=== PATIENT | female | born 1970 | race Caucasian/White ===

== ENCOUNTER 2016-07-08 14:23 | Emergency (ER) | payer OTHER ==
[~2016-07-08] VITALS: Ht 167.6 cm; Wt 56.0 kg
[~2016-07-08 14:23] MED LIST: IBUP600T26 PO; LORTA5 PO; TOPR50TA PO
[2016-07-08 14:31] VITALS: BP 155/106; PULSE 112; RESP 17; TEMP 98.3; O2SAT 100
[2016-07-08] MEDS ORDERED: METO-338 PO (14:37)
[2016-07-08 14:42] LABS: AUTOMATED NEUTROPHIL # 8.5 TH/MM3 (1.8-7.7); BASOPHIL # 0.1 TH/MM3 (0-0.2); BASOPHIL % 0.6 % (0.0-2.0); EOSINOPHIL # 0.1 TH/MM3 (0-0.4); EOSINOPHIL % 0.5 % (0.0-4.0); HEMATOCRIT 44.5 % (35.0-46.0); LYMPH % 24.4 % (9.0-44.0); LYMPHOCYTE # 3.4 TH/MM3 (1.0-4.8); MEAN CELL VOLUME 94.3 FL (80.0-100.0); MEAN CORPUSCULAR HEMOGLOBIN 31.3 PG (27.0-34.0); MEAN CORPUSCULAR HGB CONC 33.2 % (32.0-36.0); MONO % 13.2 % (0.0-8.0); NEUT % 61.3 % (16.0-70.0); PLATELET COUNT 132 TH/MM3 (150-450); RED BLOOD COUNT 4.72 MIL/MM3 (4.00-5.30); RED CELL DISTRIBUTION WIDTH 12.5 % (11.6-17.2)
[2016-07-08 14:43] LABS: HEMO FLAGS DIFF FINAL
[2016-07-08 14:51] LABS: POTASSIUM 4.3 MEQ/L (3.5-5.1)
[2016-07-08 14:54] LABS: BICARBONATE 28.5 MEQ/L (21.0-32.0)
[2016-07-08 14:57] VITALS: BP 102/73; PULSE 73; RESP 17; O2SAT 98
--- NOTE | 2016-07-08 14:57 | PD ---
HPI Chief Complaint: Cardiac Complaint Time Seen by Provider: 14:27 Travel History International Travel<30 days: No Contact w/Intl Traveler<30days: No Traveled to known affect area: No History of Present Illness HPI The patient is a 45-year-old female who presents to the emergency department for palpitations. The patient has a long-standing history of supraventricular tachycardia and has been on metoprolol for approximately 20 years. The patient has had a previous workup including echocardiogram in the past. The patient states she tried several maneuvers at home including coughing , bearing down, and subsequently took extra metoprolol. The patient took a total of 250 mg of metoprolol today, states her symptoms resolved just that she arrived in the emergency department. The patient complained of palpitations with a racing heart, but denied any lightheadedness, dizziness, chest pain, shortness breath, nausea, vomiting, or syncopal episodes. The patient is followed by a primary physician in [place], [place]. PFSH Past Medical History Heart Rhythm Problems: Yes (SVT) Cardiovascular Problems: Yes (HEART MURMUR;MITRAL VALVE PROLAPSE;SVT) Diminished Hearing: No Musculoskeletal: Yes (CARPAL TUNNEL) Tetanus Vaccination: > 5 Years Influenza Vaccination: No ?: Not : 2 Para: 2 Past Surgical History Other Surgery: Yes (WISDOM TEETH REMOVED) Social History Alcohol Use: Yes (SOCIAL) Tobacco Use: Yes (1 PPD) Substance Use: No Allergies-Medications (Allergen,Severity, Reaction): Coded Allergies: No Known Allergies (Verified , 07/08/16) Reported Meds & Prescriptions Reported Meds & Active Scripts Active Reported Lopressor (Metoprolol Tartrate) 100 Mg Tab 100 Mg PO DAILY Review of Systems Except as stated in HPI: all other systems reviewed are Neg General / Constitutional: No: Fever Eyes: No: Blurred Vision HENT: No: Lightheadedness Cardiovascular: Positive: Palpitations, Tachycardia, No: Chest Pain or Discomfort, Irregular Rhythm, Diaphoresis, Dyspnea on exertion Respiratory: No: Shortness of Breath Gastrointestinal: No: Nausea, Vomiting, Abdominal Pain Neurologic: No: Dizziness Physical Exam Narrative GENERAL: Awake, alert, pleasant 45-year-old female who appears her stated age and is in no acute respiratory distress. SKIN: Warm and dry. HEAD: Atraumatic. Normocephalic. EYES: No injection or drainage. ENT: No nasal bleeding or discharge. Mucous membranes pink and moist. NECK: Trachea midline. No JVD. CARDIOVASCULAR: Regular rate and rhythm. No murmur appreciated. Heart rate in the 80s. RESPIRATORY: No accessory muscle use. Clear to auscultation. Breath sounds equal bilaterally. MUSCULOSKELETAL: No obvious deformities. No clubbing. No cyanosis. No edema. NEUROLOGICAL: Awake and alert. No obvious cranial nerve deficits. Motor grossly within normal limits. Normal speech. PSYCHIATRIC: Appropriate mood and affect; insight and judgment normal. Data Data Last Documented VS Vital Signs Date Time Temp Pulse Resp B/P Pulse Ox O2 Delivery O2 Flow Rate FiO2 07/08/16 14:57 73 17 102/73 98 Room Air 07/08/16 14:31 98.3 Orders Basic Metabolic Panel (Bmp) (07/08/16 14:35) Magnesium (Mg) (07/08/16 14:35) Complete Blood Count With Diff (07/08/16 14:35) Labs Laboratory Tests Test 07/08/16 14:30 White Blood Count 14.0 TH/MM3 Red Blood Count 4.72 MIL/MM3 Hemoglobin 14.8 GM/DL Hematocrit 44.5 % Mean Corpuscular Volume 94.3 FL Mean Corpuscular Hemoglobin 31.3 PG Mean Corpuscular Hemoglobin 33.2 % Concent Red Cell Distribution Width 12.5 % Platelet Count 132 TH/MM3 Mean Platelet Volume 8.9 FL Neutrophils (%) (Auto) 61.3 % Lymphocytes (%) (Auto) 24.4 % Monocytes (%) (Auto) 13.2 % Eosinophils (%) (Auto) 0.5 % Basophils (%) (Auto) 0.6 % Neutrophils # (Auto) 8.5 TH/MM3 Lymphocytes # (Auto) 3.4 TH/MM3 Monocytes # (Auto) 1.9 TH/MM3 Eosinophils # (Auto) 0.1 TH/MM3 Basophils # (Auto) 0.1 TH/MM3 CBC Comment DIFF FINAL Differential Comment Sodium Level 143 MEQ/L Potassium Level 4.3 MEQ/L Chloride Level 107 MEQ/L Carbon Dioxide Level 28.5 MEQ/L Anion Gap 8 MEQ/L Blood Urea Nitrogen 12 MG/DL Creatinine 0.69 MG/DL Estimat Glomerular Filtration 91 ML/MIN Rate Random Glucose 130 MG/DL Calcium Level 9.1 MG/DL Magnesium Level 2.0 MG/DL [facility] Medical Decision Making Medical Screen Exam Complete: Yes Emergency Medical Condition: Yes Medical Record Reviewed: Yes Interpretation(s) EKG reveals normal sinus rhythm with a rate of 84. No ischemic changes or ectopy noted. Laboratory Tests Test 07/08/16 14:30 White Blood Count 14.0 TH/MM3 Red Blood Count 4.72 MIL/MM3 Hemoglobin 14.8 GM/DL Hematocrit 44.5 % Mean Corpuscular Volume 94.3 FL Mean Corpuscular Hemoglobin 31.3 PG Mean Corpuscular Hemoglobin 33.2 % Concent Red Cell Distribution Width 12.5 % Platelet Count 132 TH/MM3 Mean Platelet Volume 8.9 FL Neutrophils (%) (Auto) 61.3 % Lymphocytes (%) (Auto) 24.4 % Monocytes (%) (Auto) 13.2 % Eosinophils (%) (Auto) 0.5 % Basophils (%) (Auto) 0.6 % Neutrophils # (Auto) 8.5 TH/MM3 Lymphocytes # (Auto) 3.4 TH/MM3 Monocytes # (Auto) 1.9 TH/MM3 Eosinophils # (Auto) 0.1 TH/MM3 Basophils # (Auto) 0.1 TH/MM3 CBC Comment DIFF FINAL Differential Comment Sodium Level 143 MEQ/L Potassium Level 4.3 MEQ/L Chloride Level 107 MEQ/L Carbon Dioxide Level 28.5 MEQ/L Anion Gap 8 MEQ/L Blood Urea Nitrogen 12 MG/DL Creatinine 0.69 MG/DL Estimat Glomerular Filtration 91 ML/MIN Rate Random Glucose 130 MG/DL Calcium Level 9.1 MG/DL Magnesium Level 2.0 MG/DL Differential Diagnosis Differential diagnosis includes SVT, electrolyte abnormality, atrial fibrillation, atrial flutter, sympathomimetic crisis. Narrative Course IV was established, labs were drawn and sent, and the patient was placed on cardiac telemetry monitoring and continuous pulse oximetry monitoring. EKG was ordered and interpreted. The patient's heart rate was in the 80s, normal sinus rhythm, therefore, no further medications were obtained. Electrolytes were sent to lab. The patient was monitored in the emergency department on cardiac telemetry monitoring. The patient's CBC reveals normal hemoglobin, mildly elevated white count with elevated monocytes. BMP is unremarkable except for mildly elevated glucose of 130, electrolytes are unremarkable. The patient maintained a normal sinus rhythm, will be discharged home. She is advised to follow-up with her primary physician and return if symptoms worsen or progress. Diagnosis Primary Impression: Paroxysmal SVT (supraventricular tachycardia) Patient Instructions: General Instructions Additional Instructions: Please provide the patient a copy of her EKG and lab work at discharge. Follow- up with your primary physician. Return if symptoms worsen or progress. Disposition: 01 DISCHARGE HOME Condition: Stable Burt Walters MD Jul 08, 2016 14:57
[2016-07-08 15:10] VITALS: BP 102/78; PULSE 70; RESP 17; O2SAT 99
--- NOTE | 2016-07-09 20:39 | EKG ---
Date Performed: 07/08/2016 Time Performed: 14:30:44 PTAGE: 45 years EKG: Sinus rhythm Normal ECG Compared to prior tracing no significant change DOCTOR: Cally Izaguirre Interpretating Date/Time 07/09/2016 20:37:40
== END 2016-07-08 15:35 | disposition home or self-care (01) ==
LOC: PHED 14:23
DX: I47.1 Supraventricular tachycardia (principal); D72.829 Elevated white blood cell count, unspecified; F17.210 Nicotine dependence, cigarettes, uncomplicated; R01.1 Cardiac murmur, unspecified; I34.1 Nonrheumatic mitral (valve) prolapse
CPT/HCPCS: 80048; 83735; 85025; 93005; 99284